=== PATIENT | female | born 1985 | race Caucasian/White ===

== ENCOUNTER 2019-05-30 13:55 | Inpatient (IN) | payer OTHER ==
[~2019-05-30] VITALS: Ht 172.7 cm; Wt 79.0 kg
[~2019-05-30 13:55] MED LIST: LORA1 PO
[2019-05-30] MEDS ORDERED: PRENATAL TABLE1 EAC2 (14:22)
[2019-05-30] MEDS ORDERED: POLY500 (14:22)
[2019-05-30 14:25] LABS: BASOPHILS ABSOLUTE AUTO 0.02 K/mm3 (0.00-0.23); BASOPHILS PERCENT AUTO 0 % (0-2); EOSINOPHILS ABSOLUTE AUTO 0.08 K/mm3 (0.00-0.68); EOSINOPHILS PERCENT AUTO 1 % (0-6); Hematocrit 34.6 % (33.0-51.0); Hemoglobin 10.7 g/dL (11.5-16.0); IMMATURE GRAN ABSOLUTE AUTO 0.06 K/mm3 (0.00-0.10); IMMATURE GRAN PERCENT AUTO 1 % (0-1); LYMPHOCYTES ABSOLUTE AUTO 1.21 K/mm3 (0.84-5.20); LYMPHOCYTES PERCENT AUTO 14 % (21-46); MONOCYTES ABSOLUTE AUTO 0.68 K/mm3 (0.16-1.47); MONOCYTES PERCENT AUTO 8 % (4-13); Mean Corpuscular HGB 25.4 pg (26.0-34.0); Mean Corpuscular HGB Conc 30.9 g/dL (31.5-36.5); Mean Corpuscular Volume 82 fL (80-100); Mean Platelet Volume 9.9 fL (9.1-12.4); NEUTROPHILS ABSOLUTE AUTO 6.34 K/mm3 (1.96-9.15); NEUTROPHILS PERCENT AUTO 76 % (41-73); Platelet Count 235 K/mm3 (150-400); RDW Coefficient Variation 14.5 % (11.7-14.2); RDW Standard Deviation 42.7 fL (35.1-46.3); Red Blood Cell Count 4.21 M/mm3 (3.80-5.20); White Blood Cell Count 8.39 K/mm3 (4.00-11.30)
--- NOTE | 2019-05-31 04:36 | NUR ---
RECIEVED REPORT FROM ALINA Carrera ASSUMED CARE OF PTS
[2019-05-31 05:52] LABS: BASOPHILS ABSOLUTE AUTO 0.02 K/mm3 (0.00-0.23); BASOPHILS PERCENT AUTO 0 % (0-2); EOSINOPHILS ABSOLUTE AUTO 0.08 K/mm3 (0.00-0.68); EOSINOPHILS PERCENT AUTO 1 % (0-6); Hematocrit 28.4 % (33.0-51.0); IMMATURE GRAN ABSOLUTE AUTO 0.07 K/mm3 (0.00-0.10); IMMATURE GRAN PERCENT AUTO 1 % (0-1); LYMPHOCYTES ABSOLUTE AUTO 1.27 K/mm3 (0.84-5.20); LYMPHOCYTES PERCENT AUTO 11 % (21-46); MONOCYTES PERCENT AUTO 7 % (4-13); Mean Corpuscular HGB 25.9 pg (26.0-34.0); Mean Corpuscular HGB Conc 31.7 g/dL (31.5-36.5); Mean Corpuscular Volume 82 fL (80-100); Mean Platelet Volume 10.2 fL (9.1-12.4); NEUTROPHILS ABSOLUTE AUTO 9.27 K/mm3 (1.96-9.15); NEUTROPHILS PERCENT AUTO 81 % (41-73); Platelet Count 196 K/mm3 (150-400); RDW Coefficient Variation 14.7 % (11.7-14.2); Red Blood Cell Count 3.48 M/mm3 (3.80-5.20); White Blood Cell Count 11.51 K/mm3 (4.00-11.30)
--- NOTE | 2019-05-31 10:55 | NUR ---
Assumed care from Ulises Hayes RN. Pt requesting pain medication. Denies other needs at this time.
[2019-05-31] MEDS ORDERED: IBUP800 PO (15:30)
[2019-05-31] MEDS ORDERED: Colace100 MG PO (15:31)
--- NOTE | 2019-05-31 22:36 | NUR ---
DISCHARGE DISCHARGE INSTRUCTIONS GIVEN, DENIES ANY FURTHER QUESTIONS OR CONCERNS AT THIS TIME. BANDS MATCHED AND HUGS REMOVED. ALL VITALS ARE WITHIN NORMAL LIMITS
== END 2019-05-31 22:38 | disposition home or self-care (01) | DRG 807 ==
LOC: OBS 13:55 → BC 14:06
PROVIDERS: ADMIT Nurse Practitioner Obstetrics & Gynecology
PROC: 10E0XZZ Delivery of Products of Conception, External Approach (ICD-10-PCS; principal; 2019-05-30)
PROC: 10907ZC Drainage of Amniotic Fluid, Therapeutic from Products of Conception, Via Natural or Artificial Opening (ICD-10-PCS; 2019-05-30)
PROC: 3E033VJ Introduction of Other Hormone into Peripheral Vein, Percutaneous Approach (ICD-10-PCS; 2019-05-30)
DX: O48.0 Post-term pregnancy (principal); Z37.0 Single live birth; O99.824 Streptococcus B carrier state complicating childbirth; Z3A.40 40 weeks gestation of pregnancy
CPT/HCPCS: 36415; 85025; J0290; J1885; J2210; J2590; J3010; J7120

== ENCOUNTER 2020-10-23 22:11 | Emergency (ER) | payer OTHER ==
[~2020-10-23] VITALS: Ht 172.7 cm; Wt 63.5 kg
[~2020-10-23 22:11] MED LIST changes: +Colace100 MG PO; +IBUP800 PO; +POLY500; +PRENATAL TABLE1 EAC2
[2020-10-23] MEDS ORDERED: EPIPEN0.3 MG/0.3 IM (22:40)
[2020-10-23] MEDS ORDERED: Prednisone20 MG PO (22:40)
== END 2020-10-23 23:22 | disposition home or self-care (01) ==
LOC: ER 22:11
DX: T78.1XXA Other adverse food reactions, not elsewhere classified, initial encounter (principal); L29.9 Pruritus, unspecified; Z91.018 Allergy to other foods; Z79.899 Other long term (current) drug therapy
CPT/HCPCS: 99283; J0171; J7512

== ENCOUNTER 2021-07-05 08:55 | Emergency (ER) | payer OTHER ==
[~2021-07-05] VITALS: Ht 172.7 cm; Wt 63.5 kg
[~2021-07-05 08:55] MED LIST changes: +EPIPEN0.3 MG/0.3 IM; +Prednisone20 MG PO
[2021-07-05 10:56] LABS: Source, Urine Clean Catch
[2021-07-05 11:03] LABS: Appearance, Urine Hazy (Clear); Bilirubin, Urine Neg (Neg); Blood, Urine 5+ (Neg); Color, Urine Yellow (P-Yellow); Glucose Qualitative, Urine Neg (Neg); Ketones, Urine Neg (Neg); Leukocyte Esterase, Urine 1+ (Neg); Nitrite, Urine Neg (Neg); Protein, Urine 2+ (Neg); Specific Gravity, Urine 1.015 (1.003-1.022); Urobilinogen, Urine NORM (Normal); pH, Urine 6.5 (5.0-8.0)
[2021-07-05 11:14] LABS: Bacteria Mod /hpf; Red Blood Cells, Urine 50-100 /hpf (0-2); Squamous Epithelial Cells Few /hpf (Few)
[2021-07-05 11:15] LABS: Mucus Light (0-Heavy)
[2021-07-05 11:37] LABS: BASOPHILS ABSOLUTE AUTO 0.03 K/mm3 (0.00-0.23); BASOPHILS PERCENT AUTO 1 % (0-2); EOSINOPHILS ABSOLUTE AUTO 0.07 K/mm3 (0.00-0.68); EOSINOPHILS PERCENT AUTO 2 % (0-6); Hematocrit 37.7 % (33.0-51.0); Hemoglobin 12.5 g/dL (11.5-16.0); IMMATURE GRAN ABSOLUTE AUTO 0.01 K/mm3 (0.00-0.10); IMMATURE GRAN PERCENT AUTO 0 % (0-1); LYMPHOCYTES ABSOLUTE AUTO 1.22 K/mm3 (0.84-5.20); LYMPHOCYTES PERCENT AUTO 26 % (21-46); MONOCYTES ABSOLUTE AUTO 0.26 K/mm3 (0.16-1.47); MONOCYTES PERCENT AUTO 6 % (4-13); Mean Corpuscular HGB 28.7 pg (26.0-34.0); Mean Corpuscular HGB Conc 33.2 g/dL (31.5-36.5); Mean Corpuscular Volume 87 fL (80-100); Mean Platelet Volume 9.5 fL (9.1-12.4); NEUTROPHILS ABSOLUTE AUTO 3.14 K/mm3 (1.96-9.15); NEUTROPHILS PERCENT AUTO 66 % (41-73); Platelet Count 224 K/mm3 (150-400); RDW Coefficient Variation 14.1 % (11.7-14.2); RDW Standard Deviation 44.7 fL (35.1-46.3); Red Blood Cell Count 4.36 M/mm3 (3.80-5.20); White Blood Cell Count 4.73 K/mm3 (4.00-11.30)
[2021-07-05 12:07] LABS: Anion Gap 5 mmol/L (6-16); Blood Urea Nitrogen 10 mg/dL (8-24); Bun/Creatinine Ratio 16.7 (12.0-20.0); CO2, Blood 25 mmol/L (21-32); Calcium, Blood 8.5 mg/dL (8.5-10.1); Chloride, Blood 110 mmol/L (98-108); Glomerular Filtration Rate >60 (60-); Glucose, Blood 88 mg/dL (70-99); Potassium, Blood 3.5 mmol/L (3.5-5.5); Sodium, Blood 140 mmol/L (136-145)
[2021-07-05 12:09] LABS: Beta HCG, Quantitative, Serum 5535 mIU/mL (0-3)
== END 2021-07-05 13:08 | disposition home or self-care (01) ==
LOC: ER 08:55
PROVIDERS: Emergency Medicine; Physician Assistant
DX: O20.0 Threatened abortion (principal); Z91.018 Allergy to other foods
CPT/HCPCS: 36415; 76801; 76817; 80048; 81001; 84702; 85025; 86900; 86901; 87086; 99284-25

== ENCOUNTER 2022-08-13 06:09 | Inpatient (IN) | payer OTHER ==
[~2022-08-13] VITALS: Ht 172.7 cm; Wt 85.2 kg
[2022-08-13 08:25] LABS: BASOPHILS ABSOLUTE AUTO 0.03 K/mm3 (0.00-0.23); BASOPHILS PERCENT AUTO 0 % (0-2); EOSINOPHILS ABSOLUTE AUTO 0.09 K/mm3 (0.00-0.68); EOSINOPHILS PERCENT AUTO 1 % (0-6); Hematocrit 34.6 % (33.0-51.0); Hemoglobin 11.1 g/dL (11.5-16.0); IMMATURE GRAN ABSOLUTE AUTO 0.03 K/mm3 (0.00-0.10); IMMATURE GRAN PERCENT AUTO 0 % (0-1); LYMPHOCYTES ABSOLUTE AUTO 1.48 K/mm3 (0.84-5.20); LYMPHOCYTES PERCENT AUTO 19 % (21-46); MONOCYTES ABSOLUTE AUTO 0.49 K/mm3 (0.16-1.47); MONOCYTES PERCENT AUTO 6 % (4-13); Mean Corpuscular HGB 25.9 pg (26.0-34.0); Mean Corpuscular HGB Conc 32.1 g/dL (31.5-36.5); Mean Corpuscular Volume 81 fL (80-100); Mean Platelet Volume 9.8 fL (9.1-12.4); NEUTROPHILS ABSOLUTE AUTO 5.49 K/mm3 (1.96-9.15); NEUTROPHILS PERCENT AUTO 72 % (41-73); Platelet Count 251 K/mm3 (150-400); RDW Standard Deviation 43.5 fL (35.1-46.3); Red Blood Cell Count 4.29 M/mm3 (3.80-5.20); White Blood Cell Count 7.61 K/mm3 (4.00-11.30)
[2022-08-13 14:29] LABS: Source, Urine Foley catheter
[2022-08-13 14:44] LABS: Appearance, Urine Hazy (Clear); Bilirubin, Urine Neg (Neg); Blood, Urine 5+ (Neg); Color, Urine Yellow (P-Yellow); Glucose Qualitative, Urine Neg (Neg); Ketones, Urine 1+ (Neg); Leukocyte Esterase, Urine 1+ (Neg); Nitrite, Urine Neg (Neg); Protein, Urine 2+ (Neg); Urobilinogen, Urine 1+ (Normal)
[2022-08-13 14:55] LABS: Bacteria Few /hpf; Hyaline Casts 0-2 /lpf (0-2); Mucus Light (0-Heavy); Red Blood Cells, Urine 50-100 /hpf (0-2); Squamous Epithelial Cells Few /hpf (Few)
[2022-08-14] MEDS ORDERED: IBUP800 PO (07:20)
[2022-08-14] MEDS ORDERED: DOCU100 PO (07:21)
[2022-08-14 07:42] LABS: Hematocrit 27.7 % (33.0-51.0); Mean Corpuscular HGB 26.6 pg (26.0-34.0); Mean Corpuscular HGB Conc 32.5 g/dL (31.5-36.5); Mean Corpuscular Volume 82 fL (80-100); Mean Platelet Volume 10.2 fL (9.1-12.4); Platelet Count 189 K/mm3 (150-400); RDW Coefficient Variation 14.9 % (11.7-14.2); RDW Standard Deviation 43.8 fL (35.1-46.3); Red Blood Cell Count 3.38 M/mm3 (3.80-5.20); White Blood Cell Count 7.35 K/mm3 (4.00-11.30)
--- NOTE | 2022-08-14 16:01 | NUR ---
dc instructions reviewed with patient. questions answered and pt verbalizes understanding. will follow up tuesday here at [facility] at 1300 with fernando garcia rn. prescription for ibuprofen and percocet given. discharged home with and at side.
== END 2022-08-14 15:40 | disposition home or self-care (01) | DRG 807 ==
LOC: OBS 06:09 → BC 06:11 → OBS 06:23 → BC 06:24
PROVIDERS: ADMIT Nurse Practitioner Obstetrics & Gynecology
PROC: 10E0XZZ Delivery of Products of Conception, External Approach (ICD-10-PCS; principal; 2022-08-13)
PROC: 10907ZC Drainage of Amniotic Fluid, Therapeutic from Products of Conception, Via Natural or Artificial Opening (ICD-10-PCS; 2022-08-13)
PROC: 3E0R3BZ Introduction of Anesthetic Agent into Spinal Canal, Percutaneous Approach (ICD-10-PCS; 2022-08-13)
PROC: 00HU33Z Insertion of Infusion Device into Spinal Canal, Percutaneous Approach (ICD-10-PCS; 2022-08-13)
DX: O48.0 Post-term pregnancy (principal); Z37.0 Single live birth; O77.0 Labor and delivery complicated by meconium in amniotic fluid; Z3A.40 40 weeks gestation of pregnancy; Z91.018 Allergy to other foods; O09.513 Supervision of elderly primigravida, third trimester
CPT/HCPCS: 36415; 51702; 81001; 85025; 85027; 86850; 86900; 86901; 87086; A9270; J1885; J2210; J2590; J7120

== ENCOUNTER → 2024-08-27 | Outpatient (CLI) | payer OTHER ==
[~2024-08-27] MED LIST changes: +DOCU100 PO
== END ==
LOC: LAB 14:10 → LAB SHORT 14:10
DX: O09.90 Supervision of high risk pregnancy, unspecified, unspecified trimester (principal)
CPT/HCPCS: 87081; 87150

== ENCOUNTER 2024-09-13 07:03 | Inpatient (IN) | payer OTHER ==
[2024-09-13] VITALS (16 sets, daily range): BP systolic 118–164; BP diastolic 63–95
[~2024-09-13] VITALS: Ht 172.7 cm; Wt 84.0 kg
[2024-09-13] MEDS ORDERED: Ondansetron HCl 2 MG / ML 2ML Vial IV PRN (07:25)
[2024-09-13] MEDS ORDERED: OXYTOCIN/RINGER'S LACTATE 500 ML IV PRN (07:25)
[2024-09-13] MEDS ORDERED: Lactated Ringer's 1,000 ML IV SCH ×2 (07:25→17:30)
[2024-09-13] MEDS ORDERED: Methylergonovine Maleate 0.2MG / ML 1ML Amp IM PRN ×2 (07:25→17:40)
[2024-09-13] MEDS ORDERED: Misoprostol 200 MCG Tab PR PRN (07:25)
[2024-09-13] MEDS ORDERED: Lactated Ringer's 1,000 ML IV PRN ×3 (07:25→07:30)
[2024-09-13] MEDS ORDERED: Acetaminophen 500 MG Tab PO PRN (07:25)
[2024-09-13] MEDS ORDERED: OXYTOCIN/RINGER'S LACTATE 500 ML IV SCH ×2 (07:25→17:35)
[2024-09-13] MEDS ORDERED: Tranexamic Acid 100 ML IV SCH (07:25)
[2024-09-13] MEDS ORDERED: Carboprost Tromethamine 250 MCG/ML 1ML Amp IM PRN (07:25)
[2024-09-13] MEDS ORDERED: Oxytocin 10 Unit / ML Vial IM PRN (07:25)
[2024-09-13] MEDS ORDERED: FentaNYL Citrate 50 MCG/ML 2 ML Injection IV PRN (07:25)
[2024-09-13] MEDS ORDERED: Misoprostol 200 MCG Tab BC PRN ×2 (07:25→17:40)
[2024-09-13] MEDS ORDERED: FentaNYL 2mcg/ml-Bup 0.1% Epd 250 ML EPI PRN (07:30)
[2024-09-13] MEDS ORDERED: ePHEDrine Sulfate 50 MG/ML 1ML Injection XX PRN (07:30)
[2024-09-13] MEDS ORDERED: Calcium Carbonate 500 MG Tab Chew PO PRN (07:30)
[2024-09-13 08:39] LABS: BASOPHILS ABSOLUTE AUTO 0.03 K/mm3 (0.00-0.23); BASOPHILS PERCENT AUTO 0 % (0-2); EOSINOPHILS ABSOLUTE AUTO 0.08 K/mm3 (0.00-0.68); EOSINOPHILS PERCENT AUTO 1 % (0-6); Hematocrit 34.7 % (33.0-51.0); Hemoglobin 11.8 g/dL (11.5-16.0); IMMATURE GRAN ABSOLUTE AUTO 0.02 K/mm3 (0.00-0.10); IMMATURE GRAN PERCENT AUTO 0 % (0-1); LYMPHOCYTES ABSOLUTE AUTO 1.48 K/mm3 (0.84-5.20); LYMPHOCYTES PERCENT AUTO 18 % (21-46); MONOCYTES ABSOLUTE AUTO 0.55 K/mm3 (0.16-1.47); MONOCYTES PERCENT AUTO 7 % (4-13); Mean Corpuscular HGB 29.6 pg (26.0-34.0); Mean Corpuscular Volume 87 fL (80-100); Mean Platelet Volume 10.1 fL (9.1-12.4); NEUTROPHILS PERCENT AUTO 75 % (41-73); Platelet Count 196 K/mm3 (150-400); RDW Coefficient Variation 14.4 % (11.7-14.2); RDW Standard Deviation 46.2 fL (35.1-46.3); Red Blood Cell Count 3.98 M/mm3 (3.80-5.20); White Blood Cell Count 8.46 K/mm3 (4.00-11.30)
[2024-09-13] MEDS ORDERED: Ketorolac Tromethamine 30mg Vial IV PRN (17:30)
[2024-09-13] MEDS ORDERED: Benzocaine Topical Anesthetic Spray 60GM TOP PRN (17:35)
[2024-09-13] MEDS ORDERED: Acetaminophen 325 MG TABLET PO PRN (17:35)
[2024-09-13] MEDS ORDERED: Docusate Sodium 100 MG Cap PO PRN (17:35)
[2024-09-13] MEDS ORDERED: FLU VACC TS2024-25(6MOS UP)/PF 45 MCG/0.5 ML SYRINGE IM SCH (17:35)
[2024-09-13] MEDS ORDERED: Witch Hazel/Glycerin PADS TOP PRN (17:35)
[2024-09-13] MEDS ORDERED: Lanolin Cream TOP PRN (17:40)
[2024-09-14 05:41] VITALS: BP 129/73
[2024-09-14 07:56] VITALS: BP 106/66
[2024-09-14] MEDS ORDERED: Prenatal Vit/FE Fumarate/FA 1 Tab PO SCH (09:00)
[2024-09-14] MEDS ORDERED: Ibuprofen 400 MG Tab PO PRN (09:00)
[2024-09-14 12:23] VITALS: BP 115/69
== END 2024-09-14 18:10 | disposition home or self-care (01) | DRG 807 ==
LOC: OBS 07:03 → BC 07:20
PROVIDERS: ADMIT Advanced Practice Midwife
PROC: 10E0XZZ Delivery of Products of Conception, External Approach (ICD-10-PCS; principal; 2024-09-13)
PROC: 10907ZC Drainage of Amniotic Fluid, Therapeutic from Products of Conception, Via Natural or Artificial Opening (ICD-10-PCS; 2024-09-13)
PROC: 4A1HXCZ Monitoring of Products of Conception, Cardiac Rate, External Approach (ICD-10-PCS; 2024-09-13)
PROC: 3E033VJ Introduction of Other Hormone into Peripheral Vein, Percutaneous Approach (ICD-10-PCS; 2024-09-13)
DX: O36.63X0 Maternal care for excessive fetal growth, third trimester, not applicable or unspecified (principal); Z37.0 Single live birth; Z3A.39 39 weeks gestation of pregnancy; O13.4 Gestational [pregnancy-induced] hypertension without significant proteinuria, complicating childbirth
CPT/HCPCS: 36415; 85025; 86850; 86900; 86901; 86923; A9270; J1885; J2590; J7120